=== PATIENT | female | born 1990 | race Caucasian/White ===

== ENCOUNTER 2021-06-17 12:53 | Inpatient (IN) | payer BC ==
[2021-06-17] MEDS ORDERED: Acetaminophen 325 MG Tab PO PRN (13:59)
[2021-06-17] MEDS ORDERED: Lidocaine 1% 50 ML MDV INJECT PRN (13:59)
[2021-06-17] MEDS ORDERED: Ondansetron 4 MG/2 ML SDV IVPUSH PRN (13:59)
[2021-06-17] MEDS ORDERED: Calcium Carbonate 500 MG Tab.Chew PO PRN (13:59)
[2021-06-17] MEDS ORDERED: Nalbuphine 10 MG/1 ML Vial IVPUSH PRN (13:59)
[2021-06-17] MEDS ORDERED: Oxytocin/Lactated Ringers 10 UNIT/1,000 ML BAG IV SCH ×2 (14:00)
[2021-06-17] MEDS: Lactated Ringers 1,000 ML IV SCH ×2 (18:31→23:47)
[2021-06-17] MEDS ORDERED: ePHEDrine 50 MG/ML SDV IVPUSH PRN (19:40)
[2021-06-17] MEDS ORDERED: diphenhydrAMINE 50 MG/ML SDV IVPUSH PRN (19:40)
[2021-06-17] MEDS ORDERED: fentaNYL 100 MCG/2 ML SDV EPIDUR PRN (19:40)
[2021-06-17] MEDS: Bupivacaine/fentaNYL/NS 100 ML Bag EPIDUR PRN (22:10)
[2021-06-18] MEDS: Lactated Ringers 1,000 ML IV SCH ×2 (02:48→12:53)
[2021-06-18] MEDS: Bupivacaine/fentaNYL/NS 100 ML Bag EPIDUR PRN (05:39)
[2021-06-18] MEDS ORDERED: Metoclopramide 10 MG/2 ML SDV IVPUSH ONE (07:18)
[2021-06-18] MEDS ORDERED: Sodium Chloride 0.9% 10 ML Syringe FLUSH PRN (07:18)
[2021-06-18] MEDS ORDERED: Citric Acid/Sodium Citrate Solution 30 ML Cup PO ONE (07:18)
[2021-06-18] MEDS ORDERED: Bupivacaine 0.5% 30 ML SDV ONE (07:29)
[2021-06-18] MEDS ORDERED: Ondansetron 4 MG/2 ML SDV ONE (07:30)
[2021-06-18] MEDS ORDERED: Oxytocin 10 Units/1 ML SDV ONE (07:30)
[2021-06-18] MEDS ORDERED: Lidocaine 2% with EPINEPHrine 1:200,000 20 ML SDV ONE (07:30)
[2021-06-18] MEDS ORDERED: Lactated Ringers 1,000 ML IV SCH ×2 (07:30→15:30)
[2021-06-18] MEDS ORDERED: Ketorolac 30 MG/ML SDV ONE (07:30)
[2021-06-18] MEDS ORDERED: fentaNYL 100 MCG/2 ML SDV ONE (07:31)
[2021-06-18] MEDS ORDERED: Sodium Bicarbonate 8.4% 50 MEQ/50 ML SDV ONE (07:32)
[2021-06-18] MEDS ORDERED: ceFAZolin 1 GM Vial ONE (07:33)
[2021-06-18] MEDS ORDERED: Morphine PF 10 MG/10 ML SDV ONE (08:20)
[2021-06-18] MEDS ORDERED: Sodium Chloride 0.9% 10 ML Syringe FLUSH SCH (09:00)
[2021-06-18] MEDS ORDERED: diphenhydrAMINE 50 MG/ML SDV IVPUSH PRN ×2 (09:04→10:25)
[2021-06-18] MEDS ORDERED: Ondansetron 4 MG/2 ML SDV IVPUSH PRN ×2 (09:04→12:46)
[2021-06-18] MEDS ORDERED: fentaNYL 100 MCG/2 ML SDV IVPUSH PRN (09:04)
[2021-06-18] MEDS ORDERED: Naloxone 0.4 MG/ML SDV IVPUSH PRN (10:25)
[2021-06-18] MEDS ORDERED: Dextrose 5%-Lactated Ringers 1,000 ML IV SCH (10:25)
[2021-06-18] MEDS ORDERED: ePHEDrine 50 MG/ML SDV IVPUSH PRN (10:25)
[2021-06-18] MEDS ORDERED: Azithromycin 500 MG in Sodium Chloride 0.9% 250 ML IV ONE (14:00)
[2021-06-18] MEDS: Ketorolac 30 MG/ML SDV IVPUSH SCH ×2 (14:32→20:55)
[2021-06-18] MEDS ORDERED: Docusate Sodium 100 MG Cap PO PRN (18:21)
[2021-06-18] MEDS: Simethicone 80 MG Tab.Chew PO SCH (18:27)
[2021-06-18] MEDS: Acetaminophen/oxyCODONE 325-5 MG Tab PO PRN (18:28)
[2021-06-18] MEDS: HYDROmorphone 0.5 MG/0.5 ML Syringe IVPUSH PRN (20:55)
[2021-06-18] MEDS ORDERED: hydrOXYzine HCl 50 MG Tab PO PRN (22:04)
[2021-06-19] MEDS: HYDROmorphone 0.5 MG/0.5 ML Syringe IVPUSH PRN (00:34)
[2021-06-19] MEDS: Ketorolac 30 MG/ML SDV IVPUSH SCH (02:41)
[2021-06-19] MEDS: Simethicone 80 MG Tab.Chew PO SCH ×3 (02:42→18:46)
[2021-06-19] MEDS ORDERED: Lactated Ringers 1,000 ML IV ONE (04:34)
[2021-06-19] MEDS: Acetaminophen/oxyCODONE 325-5 MG Tab PO PRN ×3 (05:01→20:13)
[2021-06-19] MEDS ORDERED: Sodium Chloride 0.9% 1,000 ML IV SCH (06:30)
[2021-06-19] MEDS ORDERED: Ibuprofen 800 MG Tab PO SCH (09:00)
[2021-06-19] MEDS: Levothyroxine 75 MCG Tab PO SCH (09:41)
[2021-06-19] MEDS: Ibuprofen 600 MG Tab PO PRN ×2 (09:41→20:12)
[2021-06-19] MEDS: Docusate Sodium 100 MG Cap PO SCH ×2 (09:41→20:14)
[2021-06-20] MEDS: Acetaminophen/oxyCODONE 325-5 MG Tab PO PRN ×6 (00:20→22:13)
[2021-06-20] MEDS: Ibuprofen 600 MG Tab PO PRN ×3 (02:11→21:25)
[2021-06-20] MEDS: Simethicone 80 MG Tab.Chew PO SCH ×3 (02:30→18:04)
[2021-06-20] MEDS: Levothyroxine 75 MCG Tab PO SCH (06:00)
[2021-06-20] MEDS: Docusate Sodium 100 MG Cap PO SCH ×2 (08:42→21:25)
[2021-06-21] MEDS: Simethicone 80 MG Tab.Chew PO SCH ×2 (02:31→08:18)
[2021-06-21] MEDS: Acetaminophen/oxyCODONE 325-5 MG Tab PO PRN ×2 (02:31→06:58)
[2021-06-21] MEDS: Levothyroxine 75 MCG Tab PO SCH (06:58)
[2021-06-21] MEDS: Docusate Sodium 100 MG Cap PO SCH (08:17)
[2021-06-21] MEDS: Ibuprofen 600 MG Tab PO PRN (08:17)
== END 2021-06-21 11:30 | disposition home or self-care (01) | DRG 540 ==
LOC: JD.OBCHECK 12:53 → JD.OB 12:57 → JD.OBCHECK 14:00 → JD.OB 14:07 → OBSVTOIN 06-18 08:17 → JD.OB 06-18 08:18
PROVIDERS: ADMIT Obstetrics & Gynecology; ATTEND Obstetrics & Gynecology
PROC: 10D00Z1 Extraction of Products of Conception, Low, Open Approach (ICD-10-PCS; principal; 2021-06-18)
PROC: 10907ZC Drainage of Amniotic Fluid, Therapeutic from Products of Conception, Via Natural or Artificial Opening (ICD-10-PCS; 2021-06-18)
PROC: 3E033VJ Introduction of Other Hormone into Peripheral Vein, Percutaneous Approach (ICD-10-PCS; 2021-06-18)
PROC: 3E0R3BZ Introduction of Anesthetic Agent into Spinal Canal, Percutaneous Approach (ICD-10-PCS; 2021-06-18)
PROC: 00HU33Z Insertion of Infusion Device into Spinal Canal, Percutaneous Approach (ICD-10-PCS; 2021-06-18)
PROC: 30233N1 Transfusion of Nonautologous Red Blood Cells into Peripheral Vein, Percutaneous Approach (ICD-10-PCS; 2021-06-19)
DX: O13.4 Gestational [pregnancy-induced] hypertension without significant proteinuria, complicating childbirth (principal); Z37.0 Single live birth; O99.214 Obesity complicating childbirth; O99.284 Endocrine, nutritional and metabolic diseases complicating childbirth; E03.9 Hypothyroidism, unspecified; O36.8130 Decreased fetal movements, third trimester, not applicable or unspecified; O99.02 Anemia complicating childbirth; D62 Acute posthemorrhagic anemia; E66.01 Morbid (severe) obesity due to excess calories; O76 Abnormality in fetal heart rate and rhythm complicating labor and delivery; O62.1 Secondary uterine inertia; Z20.822 Contact with and (suspected) exposure to COVID-19; Z3A.38 38 weeks gestation of pregnancy; Z87.442 Personal history of urinary calculi
CPT/HCPCS: 01967; 01968; 36415; 36430; 51702; 59025; 82565; 82570; 83615; 84112; 84156; 84450; 84460; 84520; 84550; 85025; 85027; 86592; 86850; 86900; 86901; 86922; A9270-GY; J0456; J0690; J1170; J1885; J2274; J2405; J2590; J2765; J3010; J3490; J7030; J7050; J7120; J7121; P9016; U0002